=== PATIENT | female | born 1985 | race Caucasian/White ===

== ENCOUNTER 2016-12-29 15:44 | Emergency (ER) | payer OTHER ==
[~2016-12-29] VITALS: Ht 167.6 cm; Wt 60.4 kg
[~2016-12-29 15:44] MED LIST: CATAPRES0.1 MG PO; CIPRO500 MG PO; CLEOCIN300 MG PO; CLONIDINE HCL0.1 MG PO; COLACE100 MG PO; Celestone IM; FEOSOL325 MG PO; FERROCITE324 MG PO; FLAGYL500 MG PO; Feosol PO; KLONOPIN0.5 M1 PO; LIBRIUM25 MG PO; METFORMIN HCL500 MG PO; METHADONE PO; METHADONE1 MG/1 ML PO; MOTRIN800 MG PO; Motrin PO; NAPROSYN500 MG PO; NARCAN4 MG NS; NATALCARE RX1 TABLE1 PO; NORCO 5/3251 TABLET PO; Ortho Cyclen 28 PO; PEN-VEE K,VEET500 MG PO; PRENATAL TABLE1 EAC3 PO; PYRIDIUM100 MG PO; RISPERDAL1 MG PO; TRAZODONE HCL50 MG PO; TYLENOL EXTRA500 MG PO; ULTRACET1 TABLET PO; ZOFRAN4 MG PO
[2016-12-29 17:52] LABS: ADD MIUA? NO; BILIRUBIN NEGATIVE; BLOOD NEGATIVE; COLOR YELLOW ((YELLOW)); GLUCOSE (STRIP) NEGATIVE; KETONES NEGATIVE; LEUKOCYTES NEGATIVE; NITRITE NEGATIVE; PROTEIN (STRIP) NEGATIVE; SPECIFIC GRAVITY 1.015 (1.000-1.030); UROBILINOGEN 0.2 MG/DL (0.2-1.0)
[2016-12-29 18:19] LABS: INTERNAL CONTROL VALID? YES
[2016-12-29] MEDS ORDERED: VIBRAMYCIN100 MG PO (18:23)
[2016-12-29] MEDS ORDERED: ZOFRAN ODT4 MG PO (18:23)
[2016-12-29 19:04] VITALS: BP 134/78
[2016-12-30 12:20] LABS: CHLAMYDIA TRACHOMATIS NEGATIVE; NEISSERIA GONORRHOEAE NEGATIVE
== END 2016-12-29 19:04 | disposition home or self-care (01) ==
LOC: EME 15:44
PROVIDERS: Nurse Practitioner Family
DX: N73.9 Female pelvic inflammatory disease, unspecified (principal); R19.7 Diarrhea, unspecified; J45.909 Unspecified asthma, uncomplicated; F31.9 Bipolar disorder, unspecified; F32.9 Major depressive disorder, single episode, unspecified; E11.9 Type 2 diabetes mellitus without complications; F41.9 Anxiety disorder, unspecified; F17.200 Nicotine dependence, unspecified, uncomplicated
CPT/HCPCS: 81003; 84703; 87210; 87491; 87591; 99281; 99284; J0696

== ENCOUNTER 2017-02-18 00:03 | Emergency (ER) | payer SELFPAY ==
[~2017-02-18] VITALS: Ht 165.1 cm; Wt 60.8 kg
[~2017-02-18 00:03] MED LIST changes: +VIBRAMYCIN100 MG PO; +ZOFRAN ODT4 MG PO
[2017-02-18 00:45] LABS: APPEARANCE SL.HAZY ((CLEAR)); BILIRUBIN NEGATIVE; BLOOD NEGATIVE; COLOR YELLOW ((YELLOW)); GLUCOSE (STRIP) NEGATIVE; KETONES NEGATIVE; LEUKOCYTES TRACE; NITRITE NEGATIVE; PROTEIN (STRIP) 30; SPECIFIC GRAVITY 1.027 (1.000-1.030)
[2017-02-18 00:55] LABS: HEMOGLOBIN 12.4 G/DL (11.9-15.5); MCH 30.8 PG (29.0-34.0); MCHC 33.5 G/DL (30.0-36.0); MCV 91.8 FL (83-99); PLATELET COUNT 299 K/uL (156-360); RBC DIS.WIDTH-CV 13.5 % (11.8-14.6); RBC DIS.WIDTH-SD 45.8 % (39-53); RED BLOOD COUNT 4.03 M/uL (3.80-5.20); WHITE BLOOD COUNT 13.2 K/uL (4.1-10.2)
[2017-02-18 01:03] LABS: CHLORIDE 103 mEq/L (99-109); POTASSIUM 3.6 mEq/L (3.7-5.4); SODIUM 138 mEq/L (136-147)
[2017-02-18 01:05] LABS: GLUCOSE 102 mg/dL (70-99)
[2017-02-18 01:08] LABS: SERUM ETHYL ALCOHOL < 10 mg/dL
[2017-02-18 01:09] LABS: CREATININE 0.7 mg/dL (0.6-1.3); GFR ESTIMATE (CALCULATED) > 59 mL/min/
[2017-02-18 01:10] LABS: UREA NITROGEN (BUN) 7 mg/dL (9-23)
[2017-02-18 01:11] LABS: BACTERIA NONE SEEN /HPF; EPITHELIAL CELLS 1+ /HPF; MUCUS 4+ /LPF; UCUL ADDED? NO; WHITE BLOOD CELLS 0-5 /HPF (0-5)
[2017-02-18 01:17] LABS: AMPHETAMINE NEGATIVE (500 ng/mL); BARBITURATES NEGATIVE (200 ng/mL); BENZODIAZEPINES PRESUMPTIVE POSITIVE (150 ng/mL); BUPRENORPHINE NEGATIVE (10 ng/mL); COCAINE PRESUMPTIVE POSITIVE (150 ng/mL); METHADONE NEGATIVE (200 ng/mL); METHAMPHETAMINE NEGATIVE (500 ng/mL); OPIATES (MORPHINE) PRESUMPTIVE POSITIVE (100 ng/mL); OXYCODONE NEGATIVE (100 ng/mL); PHENCYCLIDINE NEGATIVE (25 ng/mL); PROPOXYPHENE NEGATIVE (300 ng/mL); THC CANNABINOIDS NEGATIVE (50 ng/mL); TRICYCLIC ANTIDEPRESSANTS NEGATIVE (300 ng/mL)
[2017-02-18 01:19] LABS: QUANTITATIVE HCG < 4.0 MIU/ML
[2017-02-18 03:16] LABS: BENZODIAZEPINES, URINE SCREEN Negative (200 ng/mL)
[2017-02-18 13:17] VITALS: BP 118/74
== END 2017-02-18 13:25 ==
LOC: EME 00:03
PROVIDERS: Emergency Medicine
DX: R45.851 Suicidal ideations (principal); F11.20 Opioid dependence, uncomplicated; J45.909 Unspecified asthma, uncomplicated; E11.9 Type 2 diabetes mellitus without complications; F32.9 Major depressive disorder, single episode, unspecified; F41.9 Anxiety disorder, unspecified; F17.200 Nicotine dependence, unspecified, uncomplicated
CPT/HCPCS: 80048; 81003; 84702; 84999; 85027; 90837; 99281; 99285; G0480

== ENCOUNTER 2017-03-25 07:00 | Emergency (ER) | payer OTHER ==
[~2017-03-25] VITALS: Ht 165.1 cm; Wt 60.1 kg
[2017-03-25] MEDS ORDERED: TRAMADOL HCL50 MG PO (10:08)
[2017-03-25] MEDS ORDERED: CLINDAMYCIN HC150 MG PO (10:08)
[2017-03-25] MEDS ORDERED: TORADOL10 MG PO (10:08)
[2017-03-25 10:19] VITALS: BP 109/66
== END 2017-03-25 10:20 | disposition home or self-care (01) ==
LOC: EME 07:00
DX: K04.7 Periapical abscess without sinus (principal); L03.211 Cellulitis of face; F17.200 Nicotine dependence, unspecified, uncomplicated; Z71.6 Tobacco abuse counseling
CPT/HCPCS: 99281; 99284; J1885

== ENCOUNTER 2017-04-15 23:31 | Emergency (ER) | payer OTHER ==
[~2017-04-15] VITALS: Ht 165.1 cm; Wt 61.4 kg
[~2017-04-15 23:31] MED LIST changes: +CLINDAMYCIN HC150 MG PO; +TORADOL10 MG PO; +TRAMADOL HCL50 MG PO
[2017-04-16] MEDS ORDERED: PEN-VEE K,VEET500 MG PO (05:14)
[2017-04-16 05:55] VITALS: BP 100/64
== END 2017-04-18 18:16 | disposition home or self-care (01) ==
LOC: EME → EDBD 23:31 → EME 23:31
DX: T40.1X1A Poisoning by heroin, accidental (unintentional), initial encounter (principal); K08.89 Other specified disorders of teeth and supporting structures; E11.9 Type 2 diabetes mellitus without complications; J45.909 Unspecified asthma, uncomplicated; B19.20 Unspecified viral hepatitis C without hepatic coma; F41.9 Anxiety disorder, unspecified; F32.9 Major depressive disorder, single episode, unspecified; F31.9 Bipolar disorder, unspecified; F17.200 Nicotine dependence, unspecified, uncomplicated
CPT/HCPCS: 99281; 99285; J2310; J2765

== ENCOUNTER 2017-04-18 05:13 | Emergency (ER) | payer OTHER ==
[~2017-04-18] VITALS: Ht 165.1 cm; Wt 59.4 kg
[2017-04-18 06:02] LABS: HEMATOCRIT 40.1 % (36.0-46.0); HEMOGLOBIN 13.3 G/DL (11.9-15.5); MCH 30.1 PG (29.0-34.0); MCHC 33.2 G/DL (30.0-36.0); MCV 90.7 FL (83-99); PLATELET COUNT 217 K/uL (156-360); RBC DIS.WIDTH-SD 50.2 % (39-53); RED BLOOD COUNT 4.42 M/uL (3.80-5.20)
[2017-04-18 06:08] LABS: CHLORIDE 101 mEq/L (99-109); POTASSIUM 3.5 mEq/L (3.7-5.4); SODIUM 137 mEq/L (136-147)
[2017-04-18 06:09] LABS: AMPHETAMINE NEGATIVE (500 ng/mL); BARBITURATES NEGATIVE (200 ng/mL); BENZODIAZEPINES PRESUMPTIVE POSITIVE (150 ng/mL); COCAINE PRESUMPTIVE POSITIVE (150 ng/mL); METHADONE NEGATIVE (200 ng/mL); METHAMPHETAMINE NEGATIVE (500 ng/mL); OPIATES (MORPHINE) PRESUMPTIVE POSITIVE (100 ng/mL); OXYCODONE NEGATIVE (100 ng/mL); PHENCYCLIDINE NEGATIVE (25 ng/mL); PROPOXYPHENE NEGATIVE (300 ng/mL); THC CANNABINOIDS NEGATIVE (50 ng/mL); TRICYCLIC ANTIDEPRESSANTS NEGATIVE (300 ng/mL)
[2017-04-18 06:10] LABS: BUPRENORPHINE PRESUMPTIVE POSITIVE (10 ng/mL)
[2017-04-18 06:11] LABS: GLUCOSE 118 mg/dL (70-99); TOTAL PROTEIN 7.8 g/dL (6.4-8.3)
[2017-04-18 06:12] LABS: TOTAL BILIRUBIN 0.6 mg/dL (0.0-1.0)
[2017-04-18 06:13] LABS: SERUM ETHYL ALCOHOL < 10 mg/dL
[2017-04-18 06:14] LABS: ALKALINE PHOSPHATASE 121 IU/L (3-129); CREATININE 0.8 mg/dL (0.6-1.3); GFR ESTIMATE (CALCULATED) > 59 mL/min/
[2017-04-18 06:15] LABS: UREA NITROGEN (BUN) 14 mg/dL (9-23)
[2017-04-18 06:16] LABS: AST (GOT) 55 IU/L (2-34)
[2017-04-18 06:17] LABS: ALT (GPT) 73 IU/L (3-49)
[2017-04-18 06:51] LABS: BENZODIAZEPINES, URINE SCREEN POSITIVE (200 ng/mL)
[2017-04-18 13:13] LABS: QUANTITATIVE HCG < 4.0 MIU/ML
[2017-04-18 18:16] VITALS: BP 109/59
== END 2017-04-18 18:59 ==
LOC: EME 05:13
PROVIDERS: Emergency Medicine
DX: R45.851 Suicidal ideations (principal); F31.9 Bipolar disorder, unspecified; F11.20 Opioid dependence, uncomplicated; F32.9 Major depressive disorder, single episode, unspecified; F41.9 Anxiety disorder, unspecified; E11.9 Type 2 diabetes mellitus without complications; J45.909 Unspecified asthma, uncomplicated; B19.20 Unspecified viral hepatitis C without hepatic coma; F17.200 Nicotine dependence, unspecified, uncomplicated
CPT/HCPCS: 80053; 84702; 84999; 85027; 90837; 99281; 99285; G0480

== ENCOUNTER 2017-07-28 16:25 | Emergency (ER) | payer OTHER ==
[~2017-07-28] VITALS: Ht 165.1 cm; Wt 61.2 kg
[2017-07-28 16:47] LABS: APPEARANCE CLEAR ((CLEAR)); BILIRUBIN NEGATIVE; BLOOD MODERATE; COLOR YELLOW ((YELLOW)); GLUCOSE (STRIP) NEGATIVE; KETONES NEGATIVE; LEUKOCYTES NEGATIVE; NITRITE NEGATIVE; PROTEIN (STRIP) 30; SPECIFIC GRAVITY 1.019 (1.000-1.030); UROBILINOGEN 0.2 MG/DL (0.2-1.0)
[2017-07-28 16:57] LABS: BASOPHIL (%) 0.5 % (0-1); BASOPHIL COUNT 0.1 K/uL (0-0.1); EOSINOPHIL (%) 4.3 % (0-5); EOSINOPHIL COUNT 0.5 K/uL (0-0.3); HEMATOCRIT 38.7 % (36.0-46.0); HEMOGLOBIN 12.9 G/DL (11.9-15.5); IMMATURE GRANULOCYTE (%) 0.3 % (0.0-0.7); LYMPHOCYTE (%) 23.2 % (15-42); LYMPHOCYTE COUNT 2.7 K/uL (1.0-2.8); MCH 30.9 PG (29.0-34.0); MCHC 33.3 G/DL (30.0-36.0); MCV 92.6 FL (83-99); MONOCYTE (%) 5.3 % (3-12); MONOCYTE COUNT 0.6 K/uL (0-0.8); NEUTROPHIL (%) 66.4 % (45-76); NEUTROPHIL COUNT 7.6 K/uL (1.8-6.4); PLATELET COUNT 241 K/uL (156-360); RBC DIS.WIDTH-CV 13.4 % (11.8-14.6); RBC DIS.WIDTH-SD 46.4 % (39-53); RED BLOOD COUNT 4.18 M/uL (3.80-5.20); WHITE BLOOD COUNT 11.4 K/uL (4.1-10.2)
[2017-07-28 17:01] LABS: AMPHETAMINE NEGATIVE (500 ng/mL); BARBITURATES NEGATIVE (200 ng/mL); BENZODIAZEPINES NEGATIVE (150 ng/mL); BUPRENORPHINE NEGATIVE (10 ng/mL); COCAINE PRESUMPTIVE POSITIVE (150 ng/mL); METHADONE NEGATIVE (200 ng/mL); METHAMPHETAMINE NEGATIVE (500 ng/mL); OPIATES (MORPHINE) PRESUMPTIVE POSITIVE (100 ng/mL); OXYCODONE NEGATIVE (100 ng/mL); PHENCYCLIDINE NEGATIVE (25 ng/mL); PROPOXYPHENE NEGATIVE (300 ng/mL); THC CANNABINOIDS NEGATIVE (50 ng/mL); TRICYCLIC ANTIDEPRESSANTS NEGATIVE (300 ng/mL)
[2017-07-28 17:10] LABS: ALBUMIN 3.9 g/dL (3.2-4.8); CHLORIDE 101 mEq/L (99-109); POTASSIUM 3.6 mEq/L (3.7-5.4); SODIUM 139 mEq/L (136-147)
[2017-07-28 17:12] LABS: GLUCOSE 87 mg/dL (70-99)
[2017-07-28 17:13] LABS: TOTAL PROTEIN 7.3 g/dL (6.4-8.3)
[2017-07-28 17:14] LABS: TOTAL BILIRUBIN 0.3 mg/dL (0.0-1.0)
[2017-07-28 17:15] LABS: SERUM ETHYL ALCOHOL < 10 mg/dL
[2017-07-28 17:16] LABS: ALKALINE PHOSPHATASE 93 IU/L (3-129); CREATININE 0.8 mg/dL (0.6-1.3); GFR ESTIMATE (CALCULATED) > 59 mL/min/
[2017-07-28 17:17] LABS: UREA NITROGEN (BUN) 7 mg/dL (9-23)
[2017-07-28 17:18] LABS: AST (GOT) 34 IU/L (2-34)
[2017-07-28 17:19] LABS: ALT (GPT) 40 IU/L (3-49)
[2017-07-28 17:23] LABS: BACTERIA 1+ /HPF; EPITHELIAL CELLS RARE /HPF; MUCUS NONE SEEN /LPF; RED BLOOD CELLS RARE /HPF (0-5); UCUL ADDED? NO; WHITE BLOOD CELLS NONE SEEN /HPF (0-5)
[2017-07-28 17:25] LABS: QUANTITATIVE HCG < 4.0 MIU/ML
[2017-07-28 19:20] VITALS: BP 100/65
== END 2017-07-28 19:23 | disposition home or self-care (01) ==
LOC: EME 16:25
PROVIDERS: Emergency Medicine
DX: F32.9 Major depressive disorder, single episode, unspecified (principal); F19.10 Other psychoactive substance abuse, uncomplicated; F31.9 Bipolar disorder, unspecified; F41.9 Anxiety disorder, unspecified; E11.9 Type 2 diabetes mellitus without complications; J45.909 Unspecified asthma, uncomplicated; B19.20 Unspecified viral hepatitis C without hepatic coma; F17.200 Nicotine dependence, unspecified, uncomplicated
CPT/HCPCS: 80053; 81003; 84702; 84999; 85025; 90839; 99281; 99284; G0480

== ENCOUNTER 2017-10-01 04:15 | Emergency (ER) | payer OTHER ==
[~2017-10-01] VITALS: Ht 165.1 cm; Wt 58.2 kg
[2017-10-01 04:21] VITALS: BP 128/89
[2017-10-01] MEDS ORDERED: XYLOCAINE VISC100 ML PO (05:08)
[2017-10-01] MEDS ORDERED: NYSTATIN100000 UN1 PO (05:08)
== END 2017-10-01 05:38 | disposition home or self-care (01) ==
LOC: EME 04:15
DX: B37.0 Candidal stomatitis (principal); K12.0 Recurrent oral aphthae; B19.20 Unspecified viral hepatitis C without hepatic coma
CPT/HCPCS: 99281; 99284

== ENCOUNTER 2017-10-03 22:23 | Inpatient (IN) | payer OTHER ==
[~2017-10-03] VITALS: Ht 165.1 cm; Wt 57.8 kg
[~2017-10-03 22:23] MED LIST changes: +NYSTATIN100000 UN1 PO; +XYLOCAINE VISC100 ML PO
[2017-10-03 23:22] LABS: BASOPHIL (%) 0.5 % (0-1); BASOPHIL COUNT 0.1 K/uL (0-0.1); EOSINOPHIL (%) 3.8 % (0-5); EOSINOPHIL COUNT 0.5 K/uL (0-0.3); HEMATOCRIT 40.2 % (36.0-46.0); HEMOGLOBIN 13.1 G/DL (11.9-15.5); IMMATURE GRANULOCYTE (%) 0.4 % (0.0-0.7); LYMPHOCYTE COUNT 3.1 K/uL (1.0-2.8); MCH 30.3 PG (29.0-34.0); MCHC 32.6 G/DL (30.0-36.0); MCV 92.8 FL (83-99); MONOCYTE COUNT 0.7 K/uL (0-0.8); NEUTROPHIL (%) 67.3 % (45-76); PLATELET COUNT 243 K/uL (156-360); RBC DIS.WIDTH-CV 13.9 % (11.8-14.6); RBC DIS.WIDTH-SD 47.7 % (39-53); RED BLOOD COUNT 4.33 M/uL (3.80-5.20); WHITE BLOOD COUNT 13.3 K/uL (4.1-10.2)
[2017-10-03 23:34] LABS: AMPHETAMINE NEGATIVE (500 ng/mL); BARBITURATES NEGATIVE (200 ng/mL); BENZODIAZEPINES PRESUMPTIVE POSITIVE (150 ng/mL); BUPRENORPHINE NEGATIVE (10 ng/mL); COCAINE PRESUMPTIVE POSITIVE (150 ng/mL); METHADONE NEGATIVE (200 ng/mL); METHAMPHETAMINE NEGATIVE (500 ng/mL); OPIATES (MORPHINE) PRESUMPTIVE POSITIVE (100 ng/mL); OXYCODONE PRESUMPTIVE POSITIVE (100 ng/mL); PHENCYCLIDINE NEGATIVE (25 ng/mL); PROPOXYPHENE NEGATIVE (300 ng/mL); THC CANNABINOIDS NEGATIVE (50 ng/mL); TRICYCLIC ANTIDEPRESSANTS NEGATIVE (300 ng/mL)
[2017-10-03 23:36] LABS: CHLORIDE 102 mEq/L (99-109); POTASSIUM 3.8 mEq/L (3.7-5.4); SODIUM 137 mEq/L (136-147)
[2017-10-03 23:38] LABS: GLUCOSE 116 mg/dL (70-99)
[2017-10-03 23:41] LABS: SERUM ETHYL ALCOHOL < 10 mg/dL
[2017-10-03 23:42] LABS: CREATININE 0.8 mg/dL (0.6-1.3); GFR ESTIMATE (CALCULATED) > 59 mL/min/
[2017-10-03 23:43] LABS: UREA NITROGEN (BUN) 7 mg/dL (9-23)
[2017-10-03 23:51] LABS: QUANTITATIVE HCG < 4.0 MIU/ML
[2017-10-04 02:12] VITALS: BP 140/69
[2017-10-04 02:28] LABS: BENZODIAZEPINES, URINE SCREEN POSITIVE (200 ng/mL)
[2017-10-04] MEDS ORDERED: NICOTINE GUM2 MG BC (02:43)
[2017-10-04 08:08] VITALS: BP 92/54
[2017-10-04 13:05] LABS: HIV-1/2 AB/AG COMBO Nonreactive
[2017-10-04 16:27] VITALS: BP 97/58
[2017-10-05 08:14] VITALS: BP 123/82
[2017-10-05 16:33] VITALS: BP 123/75
[2017-10-06 08:09] VITALS: BP 115/75
== END 2017-10-06 11:32 | disposition home or self-care (01) | DRG 881 ==
LOC: EME 22:23 → EDOF 10-04 00:09 → 1WEST 10-04 00:09 → ENRESERV 10-04 01:56 → 1WEST 10-04 02:03
PROVIDERS: Emergency Medicine; Psychiatry & Neurology Psychiatry
DX: F32.9 Major depressive disorder, single episode, unspecified (principal); F11.23 Opioid dependence with withdrawal; B19.20 Unspecified viral hepatitis C without hepatic coma; F14.20 Cocaine dependence, uncomplicated; F41.9 Anxiety disorder, unspecified; E11.9 Type 2 diabetes mellitus without complications; F17.210 Nicotine dependence, cigarettes, uncomplicated; J45.909 Unspecified asthma, uncomplicated; Z81.8 Family history of other mental and behavioral disorders
CPT/HCPCS: 80048; 84702; 84999; 85025; 87389; 90839; 99281; 99285; G0480; J0574